=== PATIENT | female | born 1940 | race Caucasian/White ===

== ENCOUNTER 2022-02-24 23:10 | Emergency (ER) | payer OTHER ==
[2022-02-24 23:20] VITALS: BP 153/80; PULSE 73; TEMP 99.1; BMI 32.3
[2022-02-24] MEDS ORDERED: ALBUTEROL SO4 2.5/IPRATROPIUM 0.5 INH SOL 3 ML VIAL.NEB. NEB ONE (23:42)
[2022-02-24] MEDS ORDERED: ALBUTEROL SO4 2.5/IPRATROPIUM 0.5 INH SOL 3 ML VIAL.NEB. NEB SCH (23:45)
== END 2022-02-25 00:07 | disposition home or self-care (01) ==
LOC: FER 23:10
PROC: 3E0F7GC Introduction of Other Therapeutic Substance into Respiratory Tract, Via Natural or Artificial Opening (ICD-10-PCS; principal; 2022-02-24)
DX: J45.21 Mild intermittent asthma with (acute) exacerbation (principal)
CPT/HCPCS: 99283-25